=== PATIENT | male | born 1965 | race Caucasian/White ===

== ENCOUNTER 2018-11-20 00:02 | Emergency (ER) | payer BC ==
[2018-11-20] MEDS: Lidocaine 1% with EPINEPHrine 1:100,000 50 ML MDV INFILT STA (00:47)
--- NOTE | 2018-11-20 01:24 | EDM.PDOC ---
ED HPI GENERAL MEDICAL PROBLEM - General Chief Complaint: Laceration Stated Complaint: CUT LEFT THUMB Time Seen by Provider: 11/20/18 00:50 Source of Information: Reports: Patient History Limitations: Reports: No Limitations - History of Present Illness INITIAL COMMENTS - FREE TEXT/NARRATIVE: 53 yo presents after cutting the left thumb which slicing cheese approximately 1 hour LEGAL JOB TITLES. He notes no change in sensation or ability to move the thumb. Tdap is up to date. No other concerns. Treatments LEGAL JOB TITLES: Reports: Dressing(s) Left Thumb Pain Score (Numeric/FACES): 4 - Related Data Allergies Allergy/AdvReac Type Severity Reaction Status Date / Time erythromycin base Allergy Hives Verified 11/20/18 00:36 Penicillins Allergy Hives Verified 11/20/18 00:20 Sulfa (Sulfonamide Allergy Hives Verified 11/20/18 00:20 Antibiotics) Home Meds: Home Meds InFLIXimab [Remicade] 7 ml SUBCUT 11/20/18 [History] Past Medical History Musculoskeletal History: Reports: Fracture - Past Surgical History GI Surgical History: Reports: Colon Social & Family History - Tobacco Use Smoking Status *Q: Current Some Day Smoker Years of Tobacco use: 20 Packs/Tins Daily: 0.1 Second Hand Smoke Exposure: No - Caffeine Use Caffeine Use: Reports: Coffee - Alcohol Use Days Per Week of Alcohol Use: 7 Number of Drinks Per Day: 2 Total Drinks Per Week: 14 - Recreational Drug Use Recreational Drug Use: Yes ED ROS GENERAL - Review of Systems Review Of Systems: See Below Constitutional: Reports: No Symptoms HEENT: Reports: No Symptoms Respiratory: Reports: No Symptoms Cardiovascular: Reports: No Symptoms Endocrine: Reports: No Symptoms GI/Abdominal: Reports: No Symptoms : Reports: No Symptoms Musculoskeletal: Reports: No Symptoms Skin: Reports: Wound Neurological: Reports: No Symptoms Psychiatric: Reports: No Symptoms Hematologic/Lymphatic: Reports: No Symptoms Immunologic: Reports: No Symptoms ED EXAM, SKIN/RASH Exam: See Below Exam Limited By: No Limitations General Appearance: Alert, WD/WN Ears: Normal External Exam Nose: Normal Inspection Throat/Mouth: Normal Inspection Head: Atraumatic, Normocephalic Neck: Normal Inspection Respiratory/Chest: No Respiratory Distress Cardiovascular: Regular Rate, Rhythm GI/Abdominal: Soft, No Distention Back Exam: Normal Inspection Extremities: Other (approximately 1.5 cm laceration medial left thumb. Distal CSM is intact. Thumb flexion/extension/opposition intact.) Neurological: Alert, Oriented Psychiatric: Normal Affect, Normal Mood Skin: Warm, Dry ED SKIN PROCEDURES - Laceration/Wound Repair Left Medial Digit - 1st (Thumb) Lac/Wound length In cm: 1.5 Appearance: Subcutaneous, Linear, Clean Distal NVT: Neuro & Vascular Intact, No Tendon Injury Anesthetic Type: Local Local Anesthesia - Lidocaine (Xylocaine): 1% with EPI Local Anesthetic Volume: 2cc Skin Prep: Saline, Other (irrigated in sink) Exploration/Debridement/Repair: Wound Explored, No Foreign Material Found Closed with: Sutures Suture Size: 4-0 # of Sutures: 4 Suture Type: Nylon Sterile Dressing Applied: Provider Tetanus Status Addressed: Yes Complications: No Course - Vital Signs Last Recorded V/S: Last Vital Signs Temp 36.2 C 11/20/18 00:28 Pulse 66 11/20/18 00:28 Resp 12 11/20/18 00:28 BP 119/79 11/20/18 00:28 Pulse Ox 97 11/20/18 00:28 - Orders/Labs/Meds Meds: Medications Discontinued Medications Generic Name Dose Route Start Last Admin Trade Name Freq PRN Reason Stop Dose Admin Lidocaine/Epinephrine 10 ml 11/20/18 00:42 11/20/18 00:47 Xylocaine 1% With Epinephrine 1:100,000 INFILT 11/20/18 00:43 10 ml NOW STA Administration - Re-Assessments/Exams Free Text/Narrative Re-Assessment/Exam: 53 yo presents with left thumb laceration. No evidence of tendon or neurovascular injury Repaired as above Tdap up to date. Will follow-up with primary MD in 7-10 days for suture removal. Discussed signs of infection which would necessitate medical attention. 11/20/18 01:29 Departure - Departure Time of Disposition: 01:22 Disposition: Home, Self-Care 01 Clinical Impression: Laceration of thumb Qualifiers: Encounter type: initial encounter Damage to nail status: without damage Foreign body presence: without foreign body Laterality: left Qualified Code(s): S61.012A - Laceration without foreign body of left thumb without damage to nail , initial encounter - Discharge Information *PRESCRIPTION DRUG MONITORING PROGRAM REVIEWED*: Not Applicable *COPY OF PRESCRIPTION DRUG MONITORING REPORT IN PATIENT TRACY: Not Applicable Instructions: Wound Care, Adult Referrals: PCP,None [Primary Care Provider] - Forms: ED Department Discharge Additional Instructions: Please follow-up with your primary doctor in 7-10 days for suture removal as discussed See a doctor sooner if you notice increased redness, discharge, increasing pain as these may be signs of infection.
== END 2018-11-20 01:30 | disposition home or self-care (01) ==
LOC: JP.ED 00:02
DX: S61.012A Laceration without foreign body of left thumb without damage to nail, initial encounter (principal); F17.210 Nicotine dependence, cigarettes, uncomplicated; Z88.0 Allergy status to penicillin; Z88.2 Allergy status to sulfonamides; Z88.1 Allergy status to other antibiotic agents; W26.8XXA Contact with other sharp object(s), not elsewhere classified, initial encounter
CPT/HCPCS: 12001; 99282-25